=== PATIENT | female | born 2000 | race African-American/Black ===

== ENCOUNTER 2020-01-03 19:39 | Emergency (ER) | payer OTHER ==
[~2020-01-03] VITALS: Ht 157.5 cm; Wt 93.0 kg
[2020-01-03 21:30] LABS: Urine Bacteria MOD /hpf (None Seen); Urine Blood Negative /uL (Negative); Urine Mucus FEW (None Seen); Urine Specific Gravity 1.025 (1.001-1.035); Urine WBC 71 /hpf (0 - 5)
[2020-01-03 21:58] VITALS: BP 126/78
== END 2020-01-03 22:58 | disposition home or self-care (01) ==
LOC: ER 19:44
DX: N39.0 Urinary tract infection, site not specified (principal); R10.2 Pelvic and perineal pain
CPT/HCPCS: 36415; 81001; 81025; 84702